=== PATIENT | male | born 1975 | race Caucasian/White ===

== ENCOUNTER → 2019-05-06 | Outpatient (CLI) | payer BC ==
--- NOTE | 2019-05-06 09:26 | KCIC ---
MRI Lumbar Spine without contrast History: Low back pain radiating to the right leg, right leg pain since January 2019 Technique: Multiplanar, multi sequential noncontrast MR imaging was performed of the lumbar spine. Comparison: None Findings: There is posterior subluxation of L5 relative to S1 by about 7 mm, negligible posterior subluxation L3 relative to L4. There is advanced degenerative disc disease at L5-S1, moderate degenerative disc disease L3-4 and to lesser degree at L4-5. There is degenerative endplate change at L5-S1 and to lesser degree at L3-4, mild amorphous anterior L3-4 endplate edema likely reactive/degenerative in etiology. Conus terminates near superior aspect of L1. There are anterior annular tears at L4-5 and L5-S1. L1-L2: This level was not included on the axial images. Neural foramina and spinal canal are adequate. L2-L3: There is mild buckling of the ligamentum flavum and [id number] facet degenerative change. Neural foramina and spinal canal are adequate. There is negligible disc osteophyte complex. L3-L4: There is disc osteophyte complex and bulge. There is mild buckling of the ligamentum flavum and [id number] facet degenerative change. Spinal canal and the neural foramina are adequate. L4-L5: There is negligible disc osteophyte complex. Spinal canal is adequate. There is minimal buckling of the ligamentum flavum and facet degenerative change. Very mild narrowing of the inferior neural foramina bilaterally by disc osteophyte complex. L5-S1: There is disc osteophyte complex and minimal bulge superimposed on the inferiorly posteriorly subluxed L5 vertebral body margin, mild indentation upon the ventral thecal sac without spinal stenosis, near descending left S1 nerve root without significant impingement. There is more focal facet degenerative change and buckling of the ligamentum flavum on the left in the far left lateral recess without significant left lateral recess stenosis. There is moderate narrowing of the left neural foramen by facet degenerative change and disc osteophyte complex, disc osteophyte complex contacting the undersurface exiting left L5 nerve root.. There is mild narrowing of the right neural foramen with disc osteophyte complex near undersurface exiting right L5 nerve root without displacement. Impression: 1. There is grade 1 posterior subluxation L5 relative to S1, negligible posterior subluxation L3 relative to L4. There is advanced L5-S1 degenerative disc disease, to a lesser degree at L3-4 and minimally at L4-5. 2. There is no significant lumbar spinal stenosis. 3. There is moderate left and mild right L5-S1 neural foramina compromise as described, very mild inferior neural foramina compromise bilaterally at L4-5. Electronically signed by: Alexandre Prakash MD (05/06/2019 9:23 AM) [facility]
== END | disposition home or self-care (01) ==
LOC: KCIC MRI 08:33
PROVIDERS: ATTEND Nurse Practitioner Family
DX: S33.39XA Dislocation of other parts of lumbar spine and pelvis, initial encounter (principal); M48.061 Spinal stenosis, lumbar region without neurogenic claudication; M25.78 Osteophyte, vertebrae; X58.XXXA Exposure to other specified factors, initial encounter; Y93.89 Activity, other specified; Y92.89 Other specified places as the place of occurrence of the external cause; Y99.8 Other external cause status
CPT/HCPCS: 72148

== ENCOUNTER → 2019-05-24 | Outpatient (CLI) | payer BC ==
[~2019-05-24] MED LIST: IOHEXOL 180 MG/ML 10 ML VIAL. ONE; methylPREDNISolone ACETATE 40 MG/ML VIAL. ONE; methylPREDNISolone ACETATE 80 MG/ML VIAL. ONE
--- NOTE | 2019-05-24 15:29 | PAIN ---
DATE OF SERVICE: 05/24/2019 INITIAL CONSULTATION FOR PAIN CLINIC CHIEF COMPLAINT: Low back and right lower extremity pain. HISTORY OF PRESENT ILLNESS: The patient is a 43-year-old male who presents with history of pain in the low back, right lower extremity, since about 01/2019. He was working out, doing some squats and the pain was not immediate, but after a few hours, the pain began to increase in his low back and radiating to the right lower extremity, mostly in posterior gluteus, lateral thigh, medial thigh, groin, medial knee and medial lower leg at times. The patient reports that he has had physical therapy, has been doing some chiropractic treatment, which he feels actually made the pain worse. He has been doing heat pads and ice on the back. No specific medications he has tried yet. No formal physical therapies other than chiropractic treatment. The patient reports it awakens him from sleep, about every 3-4 hours. The patient reports it does not affect his bowel or bladder control, but does affect his ability to walk. He has had significant fatigability in the right lower extremity. The patient describes the pain as constant, sharp, stabbing and shooting across the low back and into the right leg as described. The patient rates his disability rating from 0-10, 10 being the worst, is a 5 with family home responsibilities and occupation and life support activities, 8 with recreation, 7 with social activity and sexual behavior and self-care activities. The patient did have MRI scan of the lumbar spine showing degenerative changes, grade 1 posterior subluxation of L5 relative to S1, negligible posterior subluxation of L3 relative to L4 and advanced L5-S1 degenerative disk disease, lesser degree at L3-L4 and minimally at L4-L5. The patient reports no loss of motor function, but again significant fatigability of the right lower extremity with activity, walking, but no overt weakness. PAST MEDICAL HISTORY: Significant for no major medical problems or conditions. The patient is in very good health. PREVIOUS SURGERY: No previous surgeries. CURRENT MEDICATIONS: None. ALLERGIES: The patient has no known drug allergies. FAMILY HISTORY: Significant for no major medical problems or conditions he is aware of. SOCIAL HISTORY: The patient drinks alcohol, about 6-10 beers every day. Does not smoke. Not use any illegal, illicit or recreational drugs. The patient is , lives with his spouse, lives locally in [place], [place] and works from home without any significant work-related physical strains on his back or legs. REVIEW OF SYSTEMS: The patient's review of systems is positive for those items mentioned in history of present illness. All systems reviewed and otherwise negative. It is complete, full and well documented on the patient's chart. PHYSICAL EXAMINATION: VITAL SIGNS: The patient's blood pressure is 150/94, pulse 78, respirations 16, temperature 98.2 degrees Fahrenheit, height is 6 feet 3 inches and weight is 205 pounds. GENERAL: The patient is awake, alert, oriented, appropriate, very pleasant demeanor. HEENT: Head shows normocephalic, atraumatic. Extraocular movements are intact and symmetrical. Oral cavity: Mucous membranes moist and pink. Dentition is intact. NECK: Shows anterior throat supple without palpable lymphadenopathy noted. Swallow reflex symmetrical. CHEST: Shows normal on inspection. Breath sounds clear to auscultation bilaterally. HEART: Shows S1, S2 clear. No murmurs auscultated. ABDOMEN: Soft, nontender, nondistended. No palpable organomegaly is noted. No rebound or guarding demonstrated. BACK: Shows spine grossly in the midline. Normal appearing thoracic kyphosis and lumbar lordotic curvature. Lumbar paraspinous muscle shows symmetrical on inspection, on palpation shows some moderate tenderness diffusely, but only diffusely without significant radiation bilaterally. No trigger points, no asymmetry. The patient shows no tenderness over the spinous processes, sacrum or sacroiliac regions. The patient has full rotational motion of lumbar spine, both laterally greater than 10 degrees right and left as well as extension greater than 10 degrees, forward flexion 45 degrees without pain reported. EXTREMITIES: The patient's lower extremities show deep tendon reflexes 2+ in the patellar and tendo calcaneus tendons. Motor exam is strong with 5/5 dorsiflexion, extension, quadriceps and hamstring flexion symmetrical. Peripheral pulses are 1+ posterior tibia. No peripheral edema is noted. Lower extremities are warm and dry to touch, equal in color and appearance. Straight leg raise noted to be negative for reproduction of radicular symptoms bilaterally. Gaenslen's and Campos's maneuvers are negative bilaterally as well. The patient is able to stand, stand on his toes without difficulty or loss of balance, walks with a normal appearing gait, does not appear to favor the right or left lower extremity, not using any assistive devices to ambulate. SKIN: Shows warm and dry, good turgor. No edema. No sores, rashes or bruising throughout. IMPRESSION: 1. This is a 43-year-old male with a 4-month history of low back and right lower extremity pain in a radicular fashion. 2. MRI scan of lumbar spine as noted. PLAN: Options were discussed with the patient including conservative medical managements, physical therapies and interventional techniques. He would like to pursue interventional techniques. We discussed a lumbar epidural steroid injection using description as well as anatomical models to describe the procedure. Risks were then discussed including, but not limited to bleeding, infection, possibility of epidural hematoma, subsequent neurological compromise, dural puncture, headaches, spinal cord and/or nerve damage, side effects of steroid medication and poor results regarding pain control. The patient understands and wished to proceed. The patient will return to clinic in approximately 2 weeks for followup. He was counseled on return appointment, activity level and side effects to be aware of. DIAGNOSES: Lumbar radiculopathy with lumbar degenerative disk disease. PROCEDURE: Lumbar epidural steroid injection, translaminar approach at the L4-L5 level using C-arm fluoroscopic guidance under sterile prep and drape using local anesthetic. MEDICATION INJECTED: A total of 120 mg Depo-Medrol plus 10 mL of preservative-free normal saline and 2 mL of contrast. CONDITION AT DISCHARGE: Stable. The patient tolerated procedure well, had no complications. SONYA OAKLEY MD DR: HIRO/wily JOB#: [id number] / [id number] IFEOMA Bosch APRN
== END ==
LOC: PNCL 13:22
PROVIDERS: ATTEND Anesthesiology
DX: M51.16 Intervertebral disc disorders with radiculopathy, lumbar region (principal)
CPT/HCPCS: 62323; J1030; J1040; Q9965